=== PATIENT | female | born 1945 | race Caucasian/White ===

== ENCOUNTER → 2018-01-15 08:15 | Outpatient (CLI) | payer MEDICARE, SELFPAY ==
[2018-01-15 10:07] LABS: Add Manual Diff / Slide Review NO; Eosinophils Percent Auto 3.2 % (2-4); Hematocrit 41.9 % (36-46); Hemoglobin 14.2 g/dL (12.0-16.0); Lymphocytes Percent Auto 35.6 % (25-40); Mean Corpuscular HGB Conc 33.9 % (30-36); Mean Corpuscular Hemoglobin 31.7 PG (26-34); Mean Corpuscular Volume 93.4 fL (80-100); Monocytes Percent Auto 9.6 % (3-14); Neutrophils Absolute Auto 2600 /uL (3000-5900); Neutrophils Percent Auto 50.6 % (50-75); Platelet Count 278 X10^3/uL (150-400); Red Blood Cell Count 4.48 X10^6/uL (4.0-5.2); Red Cell Distribution Width 14.7 % (11.6-14.8); White Blood Cell Count 5.1 X10^3/uL (4.5-11.0)
[2018-01-15 10:46] LABS: Alanine Aminotransferase 28 IU/L (9-52); Albumin 4.4 g/dL (3.5-5.0); Albumin Globulin Ratio 1.5 (1.0-2.8); Alkaline Phosphatase 55 U/L (38-126); Aspartate Aminotransferase 41 IU/L (14-36); BUN Creatinine Ratio 18.9 (6-22); Bilirubin Total 0.8 mg/dL (0.2-1.3); Blood Urea Nitrogen 17 mg/dL (7-17); Calcium 9.5 mg/dL (8.4-10.2); Carbon Dioxide 32 mmol/L (22-32); Chloride 100 mmol/L (98-107); Cholesterol 215 mg/dL (140-199); Estimated Glomerular Filt Rate > 60.0 mL/min (>60); Globulin 2.9 g/dL (1.7-4.1); Glucose 89 mg/dL (80-110); HDL Cholesterol 70 mg/dL (40-60); HEMOLYSIS < 15 (0-50); LDL Cholesterol Calculated 120 mg/dL (<100); Potassium 4.7 mmol/L (3.4-5.1); Sodium 141 mmol/L (137-145); Total Protein 7.3 g/dL (6.3-8.2); Triglycerides 124 mg/dL (35-150)
[2018-01-15 11:10] LABS: TSH w/ Reflex to FT4 2.81 uIU/mL (0.47-4.68)
== END ==
PROVIDERS: PCP Family Medicine; Visit Provider Family Medicine
DX: E03.9 Hypothyroidism, unspecified (principal)
CPT/HCPCS: 36415; 80053; 80061; 84443; 85025

== ENCOUNTER → 2018-05-22 11:53 | Outpatient (CLI) | payer MEDICARE, SELFPAY ==
--- NOTE | 2018-05-22 | DI.MG.S_ITS ---
BILATERAL DIGITAL SCREENING MAMMOGRAM 3D/2D WITH CAD: 05/22/2018 CLINICAL: Routine screening. Family history of breast cancer. Comparison is made to exams dated: 02/18/2016 mammogram, 11/26/2012 mammogram, and 09/25/2011 mammogram - [facility]. The tissue of both breasts is heterogeneously dense. This may lower the sensitivity of mammography. Current study was also evaluated with a Computer Aided Detection (CAD) system. No significant masses, calcifications, or other findings are seen in either breast. There has been no significant interval change. IMPRESSION: NEGATIVE There is no mammographic evidence of malignancy. A 1 year screening mammogram is recommended. This exam was interpreted at Station ID: [id number]. NOTE: For mammograms, a report in lay terms will be sent to the patient. Approximately 15% of breast malignancies will not be visualized mammographically. In the management of a palpable breast mass, a negative mammogram must not discourage biopsy of a clinically suspicious lesion. Electronically Signed By: Ahsan sandoval/cristian:05/24/2018 10:56:24 letter sent: Normal Exam ACR BI-RADS Category 1: Negative 3341F
== END ==
PROVIDERS: Family Provider Family Medicine; PCP Family Medicine; Visit Provider Family Medicine
DX: Z12.31 Encounter for screening mammogram for malignant neoplasm of breast (principal); Z80.3 Family history of malignant neoplasm of breast
CPT/HCPCS: 77063; 77067

== ENCOUNTER 2018-07-06 07:00 | Day surgery (SDC) | payer MEDICARE, SELFPAY ==
[2018-07-06] MEDS: PROPARACAINE 0.5% OPHTH SOL 2 DROPS EYE-OP (07:31)
[2018-07-06 07:33] VITALS: BMI 20.6
[2018-07-06] MEDS: CATARACT EYE COMPOUND (10 DROPS/SYRINGE) 3 DROPS EYE-OP (07:37)
[2018-07-06 07:38] VITALS: BP 139/80; PULSE 53; RESP 15; TEMP 36.1; O2SAT 100; BMI 20.6
--- NOTE | 2018-07-06 08:11 | PM.PREOP ---
Pre-operative Note Interval Note History & Physical reviewed/Exam performed by Physician: No Changes to H&P: No
--- NOTE | 2018-07-06 08:11 | PM.OP.1 ---
Operative Date/Time/Diagnoses Pre-op diagnosis: Nuclear Cataract Left eye Post-op diagnosis: same Procedure & Clinicians Surgeon: Eduardo Velazco Anesthesia Type: MAC +/- and Sedation Operative Notes Procedure in detail: Patient brought to the operating suite. Tetracaine drops placed in the left eye. Marking instrument was used to harrison the vertical and horizontal meridian. Patient was prepped and draped in sterile manner. Wire lid speculum was placed in the eye. Marking instrument was used to harrison the 175 degree meridian. Betadine drops were placed on the eye. This was irrigated. Lidocaine jelly was placed on the eye. A paracentesis port was created with a side-port blade. 0.1 mL 1% preservative free lidocaine was injected into the anterior chamber. The anterior chamber was deepened with viscoelastic. 2.6 mm keratome was used to create a temporal clear corneal incision. Cystotome and Utrata forceps were used to create continuous tear capsulorrhexis. Balanced salt solution was used to hydro dissect the nucleus. The phacoemulsification handpiece was inserted and the nucleus was removed using the stop and chop technique. The irrigation aspiration handpiece was inserted and the remaining cortex was removed. Anterior chamber was deepened with viscoelastic. An Vasquez [id number] intraocular lens with a power of 24.0 was injected into the capsular bag. Irrigation aspiration handpiece was inserted and the remaining viscoelastic was removed. The lens was rotated to the 175 degree meridian. Incision was hydrated with balanced salt solution and found to be leak free with pressure with Weck-Eduarda sponges. 0.1 mL Vigamox injected anterior chamber. 0.3 mL Kenalog 10 mg was injected subconjunctivally. Lid speculum was removed. The patient left the operating room in excellent condition. Complications: none Condition: stable Disposition: same day surgery
[2018-07-06] MEDS: PHENYLEPHRINE/LIDOCAINE VIAL (OR) 0.2 ML EYE-OP (08:20)
[2018-07-06] MEDS: TRIAMCINOLONE 50 MG/5 ML VIAL INJ (08:21)
[2018-07-06] MEDS: TETRACAINE 0.5% OPHTH DROPS 4 ML 2 DROPS EYE-OP (08:21)
[2018-07-06] MEDS: MOXIFLOXACIN OPHTH DROPS 3 ML BOTTLE 2 DROPS INJ (08:21)
[2018-07-06] MEDS: CHONDROIDTIN/SOD HYALURONATE 1.05 ML SYRINGE INTRAOCULA (08:21)
[2018-07-06] MEDS: BALANCED SALT IRRIG SOLN NO.2 500 ML, EPINEPHrine 1 MG IRR (08:23)
[2018-07-06 08:40] VITALS: BP 127/87; PULSE 54; RESP 16; TEMP 36.5; O2SAT 99
== END 2018-07-06 09:30 ==
LOC: OR 07:05
PROVIDERS: Family Provider Family Medicine; PCP Family Medicine; Visit Provider Ophthalmology
DX: H25.12 Age-related nuclear cataract, left eye (principal)
CPT/HCPCS: J0171; J2250; J3010; J3301; V2787

== ENCOUNTER 2018-07-27 07:08 | Day surgery (SDC) | payer MEDICARE, SELFPAY ==
[2018-07-27] MEDS: PROPARACAINE 0.5% OPHTH SOL 2 DROPS EYE-OP (07:29)
[2018-07-27] MEDS: CATARACT EYE COMPOUND (10 DROPS/SYRINGE) 3 DROPS EYE-OP (07:31)
[2018-07-27 07:38] VITALS: BP 121/78; PULSE 61; RESP 15; TEMP 36.2; O2SAT 97; BMI 20.2
--- NOTE | 2018-07-27 08:08 | PM.PREOP ---
Pre-operative Note Interval Note History & Physical reviewed/Exam performed by Physician: No Changes to H&P: No
--- NOTE | 2018-07-27 08:08 | PM.OP.1 ---
Operative Date/Time/Diagnoses Pre-op diagnosis: Nuclear cataract right eye Procedure & Clinicians Procedure: Cataract Surgery Same procedure as scheduled: Yes Surgeon: Eduardo Velazco Anesthesia Type: MAC +/- and Sedation Operative Notes Procedure in detail: Patient brought to the operating suite. Tetracaine drops placed in the right eye. Marking instrument was used to harrison the vertical and horizontal meridians. Patient was prepped and draped in sterile manner. Wire lid speculum was placed in the eye. Marking instrument was used to harrison the 15 degree meridian. Betadine drops were placed on the eye. This was irrigated. Lidocaine jelly was placed on the eye. A paracentesis port was created with a side-port blade. 0.1 mL 1% preservative free lidocaine was injected into the anterior chamber. The anterior chamber was deepened with viscoelastic. 2.6 mm keratome was used to create a temporal clear corneal incision. Cystotome and Utrata forceps were used to create continuous tear capsulorrhexis. Balanced salt solution was used to hydro dissect the nucleus. The phacoemulsification handpiece was inserted and the nucleus was removed using the stop and chop technique. The irrigation aspiration handpiece was inserted and the remaining cortex was removed. Anterior chamber was deepened with viscoelastic. An Vasquez [id number] intraocular lens with a power of 23.0 was injected into the capsular bag. Irrigation aspiration handpiece was inserted and the remaining viscoelastic was removed. The lens was rotated to the 15 degree meridian. Incision was hydrated with balanced salt solution and found to be leak free with pressure with Weck-Eduarda sponges. 0.1 mL Vigamox injected anterior chamber. 0.3 mL Kenalog 10 mg was injected subconjunctivally. Lid speculum was removed. The patient left the operating room in excellent condition. Complications: none Condition: stable Disposition: same day surgery
[2018-07-27] MEDS: PHENYLEPHRINE/LIDOCAINE VIAL (OR) 0.2 ML EYE-OP (08:18)
[2018-07-27] MEDS: TRIAMCINOLONE 50 MG/5 ML VIAL INJ (08:19)
[2018-07-27] MEDS: MOXIFLOXACIN OPHTH DROPS 3 ML BOTTLE 2 DROPS INJ (08:19)
[2018-07-27] MEDS: CHONDROIDTIN/SOD HYALURONATE 1.05 ML SYRINGE INTRAOCULA (08:20)
[2018-07-27] MEDS: TETRACAINE 0.5% OPHTH DROPS 4 ML 2 DROPS EYE-OP (08:20)
[2018-07-27] MEDS: LIDOCAINE JELLY 2% 5 ML 1 APPLIC TOP (08:20)
[2018-07-27] MEDS: BALANCED SALT IRRIG SOLN NO.2 500 ML, EPINEPHrine 1 MG IRR (08:21)
[2018-07-27 08:40] VITALS: BP 117/78; PULSE 53; RESP 16; TEMP 36.4; O2SAT 100
== END 2018-07-27 08:52 | disposition home or self-care (01) ==
LOC: OR 07:10
PROVIDERS: Family Provider Family Medicine; PCP Family Medicine; Visit Provider Ophthalmology
DX: H25.11 Age-related nuclear cataract, right eye (principal)
CPT/HCPCS: J0171; J2250; J3301; V2787

== ENCOUNTER → 2019-05-27 13:30 | Outpatient (CLI) | payer MEDICARE, SELFPAY ==
--- NOTE | 2019-05-27 | DI.MG.S_ITS ---
BILATERAL DIGITAL SCREENING MAMMOGRAM 3D/2D WITH CAD: 05/27/2019 CLINICAL: Routine screening. Family history of breast cancer. Comparison is made to exams dated: 05/22/2018 mammogram, 02/18/2016 mammogram, and 11/26/2012 mammogram - [facility]. The tissue of both breasts is heterogeneously dense. This may lower the sensitivity of mammography. Current study was also evaluated with a Computer Aided Detection (CAD) system. No significant masses, calcifications, or other findings are seen in either breast. There has been no significant interval change. IMPRESSION: NEGATIVE There is no mammographic evidence of malignancy. A 1 year screening mammogram is recommended. This exam was interpreted at Station ID: [id number]. NOTE: For mammograms, a report in lay terms will be sent to the patient. Approximately 15% of breast malignancies will not be visualized mammographically. In the management of a palpable breast mass, a negative mammogram must not discourage biopsy of a clinically suspicious lesion. Electronically Signed By: Dallas funez/cristian:05/30/2019 19:30:00 letter sent: Normal Exam ACR BI-RADS Category 1: Negative 3341F
== END ==
PROVIDERS: PCP Family Medicine; Visit Provider Family Medicine
DX: Z12.31 Encounter for screening mammogram for malignant neoplasm of breast (principal); Z80.3 Family history of malignant neoplasm of breast
CPT/HCPCS: 77063; 77067

== ENCOUNTER → 2019-07-20 09:21 | Outpatient (CLI) | payer MEDICARE, SELFPAY ==
[2019-07-20 10:00] LABS: Add Manual Diff / Slide Review NO; Basophils Absolute Auto 100 /uL (0-100); Basophils Percent Auto 1.1 % (0-2); Eosinophils Absolute Auto 200 /uL (0-450); Hematocrit 41.4 % (36-46); Hemoglobin 13.8 g/dL (12.0-16.0); Lymphocytes Absolute Auto 1300 /uL (1100-4500); Lymphocytes Percent Auto 27.7 % (25-40); Mean Corpuscular HGB Conc 33.3 % (30-36); Mean Corpuscular Hemoglobin 31.6 PG (26-34); Mean Corpuscular Volume 94.8 fL (80-100); Monocytes Absolute Auto 600 /uL (0-900); Monocytes Percent Auto 11.7 % (3-14); Neutrophils Absolute Auto 2700 /uL (1500-7000); Neutrophils Percent Auto 55.5 % (50-75); Platelet Count 257 X10^3/uL (150-400); Red Blood Cell Count 4.36 X10^6/uL (4.0-5.2); Red Cell Distribution Width 14.3 % (11.6-14.8); White Blood Cell Count 4.9 X10^3/uL (4.5-11.0)
[2019-07-20 10:43] LABS: Alanine Aminotransferase 15 IU/L (<35); Albumin 4.3 g/dL (3.5-5.0); Albumin Globulin Ratio 1.4 (1.0-2.8); Alkaline Phosphatase 52 U/L (38-126); Aspartate Aminotransferase 32 IU/L (14-36); BUN Creatinine Ratio 25.6 (6-22); Bilirubin Total 0.6 mg/dL (0.2-1.3); Blood Urea Nitrogen 23 mg/dL (7-17); Calcium 9.6 mg/dL (8.4-10.2); Carbon Dioxide 29 mmol/L (22-32); Chloride 102 mmol/L (98-107); Cholesterol 205 mg/dL (140-199); Estimated Glomerular Filt Rate > 60.0 mL/min (>60); Glucose 92 mg/dL (80-110); HDL Cholesterol 70 mg/dL (40-60); HEMOLYSIS < 15 (0-50); LDL Cholesterol Calculated 106 mg/dL (<100); Potassium 4.7 mmol/L (3.4-5.1); Sodium 139 mmol/L (137-145); Total Protein 7.3 g/dL (6.3-8.2); Triglycerides 143 mg/dL (35-150)
[2019-07-20 11:14] LABS: Thyroid Stimulating Hormone 2.17 uIU/mL (0.47-4.68)
== END ==
PROVIDERS: PCP Family Medicine; Visit Provider Family Medicine
DX: E03.9 Hypothyroidism, unspecified (principal)
CPT/HCPCS: 36415; 80053; 80061; 84443; 85025

== ENCOUNTER → 2019-08-11 13:45 | Outpatient (CLI) | payer MEDICARE, SELFPAY | PROVIDERS: PCP Family Medicine; Referring Provider Family Medicine; Visit Provider Family Medicine | DX: Z78.0 Asymptomatic menopausal state (principal); E07.9 Disorder of thyroid, unspecified; R29.890 Loss of height | CPT/HCPCS: 77080 ==

== ENCOUNTER → 2020-01-21 10:54 | Outpatient (CLI) | payer MEDICARE, SELFPAY ==
[2020-01-23 20:58] LABS: COVID19 Sendout Not Detected (Not Detect)
== END ==
PROVIDERS: PCP Family Medicine; Visit Provider Physician Assistant
DX: Z11.59 Encounter for screening for other viral diseases (principal)
CPT/HCPCS: 87635

== ENCOUNTER 2020-01-24 13:37 | Day surgery (SDC) | payer MEDICARE, SELFPAY ==
[2020-01-24] VITALS (8 sets, daily range): BP systolic 107–125; BP diastolic 60–77; PULSE 54–63; RESP 13–18; TEMP 35.9–36.6; O2SAT 98–99
--- NOTE | 2020-01-24 14:16 | PM.HP.1 ---
History of Present Illness History of Present Illness Date Patient Seen: 01/24/20 Time Patient Seen: 14:16 Chief complaint: SDC Narrative: This is a 74-year-old woman with history of screening colonoscopy 10 years ago, she is here for follow-up colonoscopy. She denies any personal history of melena, hematochezia, unexplained weight loss, unexplained abdominal pain. She denies any family history of colon cancer colon polyps. She says she is otherwise quite healthy. ROS: Thirteen system review is otherwise negative other than as mentioned below and in HPI. PE: GENERAL: Well groomed and cooperative. Appears stated age. Answers questions promptly and appropriately. Vital signs noted. HENT: Normocephalic, atraumatic. Hearing intact. EYES: Conjunctiva pink, sclera white, no periorbital swelling. CARDIOVASCULAR: Regular rate. No pedal edema. RESPIRATORY: Non-tachypneic, breathing comfortably on room air. GASTROINTESTINAL: Abdomen soft and non-distended GENITALURINARY: No flank tenderness. MUSCULOSKELETAL: Equal tone and mass bilaterally. SKIN: Warm, dry, soft, appropriate color for ethnicity. No other lesions, rashes, or wounds. NEURO: Alert and Oriented X 3. No gross sensory deficits, or cognitive issues. PSYCH: Appropriate affect and mood. Patient History Medical History Chicken pox (Resolved ~1951) Claw toe (Resolved) Foot pain (Chronic 2011) Hayfever (Chronic ~1987) Herpes (Chronic 2000) Hypothyroidism (Chronic 1984) Lumbar spine pain (Chronic ~2004) Measles (Resolved ~1949) Mitral valve prolapse (Resolved) Mumps (Resolved ~1949) Osteoarthritis (Chronic 2002) Shoulder pain (Chronic 2011) Stress ulcer (Resolved 11/2009) Vitreous floaters of both eyes (Chronic 2010) Surgical History Anesthesia (Resolved) Cataract extraction status of left eye (Acute) History of toe surgery (Resolved 2012) History of tonsillectomy (Resolved 1948) Status post hernia repair (Resolved 1944) Status post hernia repair (Resolved 1946) Family & Social History Family History Brother Age: 70 Cancer Hodgkin's disease Lymphoma Alcoholism Mother Hypertension CVA (cerebral vascular accident) Breast cancer Congestive heart failure Sister Age: 66 Mental health problem Tongue cancer Mouth cancer Father Head trauma Grandfather No problems noted. Grandmother No problems noted. Grandfather Brain tumor Grandmother No problems noted. Social History: household members spouse Tobacco & Substance use: Smoking Status Never smoker alcohol intake current Meds Home Medications and Allergies Home Medications Medication Instructions Recorded Confirmed Type cholecalciferol (vitamin D3) 2,000 iu PO Q DAY #0 09/23/11 01/24/20 History [Vitamin D3] ascorbic acid (vitamin C) 500 mg PO QDAY #0 10/23/11 01/24/20 History L. acidophilus-L. rhamnosus 2 cap PO DAILY 07/27/18 01/24/20 History [Probiotic] levothyroxine 75 mcg tablet 75 mcg PO DAILY #90 tab 07/25/19 01/24/20 Rx Ca carb-Ca gluc-Mg ox-Mg gluco 500 tab PO DAILY 01/24/20 01/24/20 History [Calcium Magnesium] vitamin B complex 1 tab PO DAILY 01/24/20 01/24/20 History Allergies Allergy/AdvReac Type Severity Reaction Status Date / Time No Known Drug Allergies Allergy Verified 01/21/20 10:53 Assessment & Plan Assessment & Plan narrative: Risks and benefits of screening colonoscopy and possible polypectomy were discussed with the patient including risk of bleeding, perforation, need for additional procedures, risks of anesthesia. The patient desires to proceed with the colonoscopy procedure. COVID-19 COVID-19 status: Negative Result date/Date tested (Pos, Neg/Pending): 01/21/20 Time Spent With Patient Time with patient: 15-24 minutes Quality VTE Deep Vein Thrombosis/Pulmonary Embolism Present on Admission: No
--- NOTE | 2020-01-24 14:21 | P.OP.ENDO_ITS ---
Operative Date/Time/Diagnoses Date of procedure: 01/24/20 Time of procedure: 14:21 Pre-op diagnosis: Average risk for colon cancer, ten years since last colonoscopy Post-op diagnosis: other (Diverticulosis, very tortuous colon) Procedure & Clinicians Study performed: Colonoscopy Procedural sedation by the endoscopist Indications: Average risk for colon cancer, ten years since last colonoscopy Surgeon: Mackenzie Gottlieb Procedure Notes SCOAP/Timeout: Performed Procedure in detail: The patient was brought to the room and placed in left lateral decubitus position with all bony prominences padded. A time-out was performed and then the patient was given procedural sedation starting with 2 mg of Versed and [100] mcg of fentanyl. A total of 4 mg of Versed and 100 micro g of fentanyl were given for the entire procedure. Vitals were monitored thr oughout the procedure and remained stable. Once adequately sedated, the procedure was begun. A rectal exam was performed revealing [no abnormalities]. The colonoscope was then introduced to the rectum and advanced to the cecum in the usual fashion. The colon was very tortuous and required multiple maneuvers in order to reach the cecum safely. []The cecum was identified by the appendiceal orifice, the mucosal tri-fold, and the ileocecal valve. The scope was then retracted while rotating side to side and examining each mucosal fold. Extensive diverticulosis was seen throughout the descending and sigmoid colon, with evidence of scarring from prior episodes of diverticulitis, but no active diverticulitis at this time. No other lesions or abnormalities were seen. [] At the conclusion of the procedure retroflexion was performed and [small grade 1-2 internal hemorrhoids without stigmata of bleeding were seen]. The scope was then withdrawn from the rectum the procedure was concluded. The patient tolerated the procedure well and was transferred to the PACU in stable condition. Scope withdrawal time: 8 Sedation minutes: 36 Findings: diverticulosis Specimen(s): none sent Complications: none Impression: Diverticulosis Post-procedure Recommendations: Colonscopy in 10 years (Is healthy enough for colonoscopy at that time) Follow up: as needed Disposition: PACU
[2020-01-24] MEDS: SODIUM CHLORIDE 0.9% 1,000 ML 200 ML IV (14:23)
[2020-01-24] MEDS: MIDAZOLAM 5 MG/5 ML VIAL IV (14:59)
[2020-01-24] MEDS: fentaNYL 250 MCG/5 ML INJ IV (15:00)
--- NOTE | 2020-01-24 15:25 | SUR.PHASEI ---
Pt wanting to sleep. Refuses po fluids right now
== END 2020-01-24 16:10 | disposition home or self-care (01) ==
PROVIDERS: PCP Family Medicine; Referring Provider Surgery; Visit Provider Surgery
PROC: 0DJD8ZZ Inspection of Lower Intestinal Tract, Via Natural or Artificial Opening Endoscopic (ICD-10-PCS; CPT 45378; principal; 2020-01-24 14:30)
DX: Z12.11 Encounter for screening for malignant neoplasm of colon (principal); K57.30 Diverticulosis of large intestine without perforation or abscess without bleeding; K64.0 First degree hemorrhoids
CPT/HCPCS: G0121; 99152; 99153; J2250; J3010

== ENCOUNTER → 2021-03-29 10:05 | Outpatient (CLI) | payer MEDICARE, SELFPAY ==
[2021-03-29 10:49] LABS: Add Manual Diff / Slide Review NO; Basophils Absolute Auto 100 /uL (0-100); Basophils Percent Auto 1.3 % (0-2); Eosinophils Absolute Auto 100 /uL (0-450); Eosinophils Percent Auto 1.6 % (2-4); Hemoglobin 12.5 g/dL (12.0-16.0); Lymphocytes Absolute Auto 1200 /uL (1100-4500); Lymphocytes Percent Auto 25.1 % (25-40); Mean Corpuscular HGB Conc 32.8 % (30-36); Mean Corpuscular Hemoglobin 30.3 PG (26-34); Mean Corpuscular Volume 92.3 fL (80-100); Monocytes Absolute Auto 400 /uL (0-900); Monocytes Percent Auto 8.9 % (3-14); Neutrophils Absolute Auto 3000 /uL (1500-7000); Neutrophils Percent Auto 63.1 % (50-75); Platelet Count 285 X10^3/uL (150-400); Red Blood Cell Count 4.12 X10^6/uL (4.0-5.2); Red Cell Distribution Width 14.4 % (11.6-14.8); White Blood Cell Count 4.8 X10^3/uL (4.5-11.0)
[2021-03-29 11:14] LABS: Alanine Aminotransferase 15 IU/L (<35); Albumin 4.3 g/dL (3.5-5.0); Albumin Globulin Ratio 1.6 (1.0-2.8); Alkaline Phosphatase 58 U/L (38-126); Aspartate Aminotransferase 36 IU/L (14-36); BUN Creatinine Ratio 22.4 (6-22); Bilirubin Total 0.7 mg/dL (0.2-1.3); Blood Urea Nitrogen 19 mg/dL (7-17); Calcium 9.7 mg/dL (8.4-10.2); Carbon Dioxide 32 mmol/L (22-32); Chloride 102 mmol/L (98-107); Cholesterol 189 mg/dL (140-199); Estimated Glomerular Filt Rate > 60.0 mL/min (>60); Globulin 2.7 g/dL (1.7-4.1); Glucose 98 mg/dL (80-110); HDL Cholesterol 80 mg/dL (40-60); HEMOLYSIS < 15 (0-50); LDL Cholesterol Calculated 92 mg/dL (<100); Potassium 4.8 mmol/L (3.4-5.1); Sodium 137 mmol/L (137-145); Triglycerides 87 mg/dL (35-150)
[2021-03-29 11:45] LABS: Thyroid Stimulating Hormone 0.238 uIU/mL (0.47-4.68)
== END ==
PROVIDERS: PCP Family Medicine; Referring Provider Physician Assistant; Visit Provider Physician Assistant
DX: E03.9 Hypothyroidism, unspecified (principal); Z13.0 Encounter for screening for diseases of the blood and blood-forming organs and certain disorders involving the immune mechanism
CPT/HCPCS: 36415; 80053; 80061; 84443; 85025

== ENCOUNTER → 2021-04-12 15:27 | Outpatient (CLI) | payer MEDICARE, SELFPAY ==
--- NOTE | 2021-04-12 15:28 | DI.MG.S_ITS ---
BILATERAL DIGITAL SCREENING MAMMOGRAM 3D/2D WITH CAD: 04/12/2021 CLINICAL: Routine screening. Family history of breast cancer. Comparison is made to exams dated: 05/22/2018 mammogram, 05/27/2019 mammogram, and 02/18/2016 mammogram - [facility]. The tissue of both breasts is heterogeneously dense. This may lower the sensitivity of mammography. Current study was also evaluated with a Computer Aided Detection (CAD) system. There are benign calcifications in the right breast. No significant masses, calcifications, or other findings are seen in either breast. There has been no significant interval change. IMPRESSION: BENIGN There is no mammographic evidence of malignancy. A 1 year screening mammogram is recommended. This exam was interpreted at Station ID: [id number]. NOTE: For mammograms, a report in lay terms will be sent to the patient. Approximately 15% of breast malignancies will not be visualized mammographically. In the management of a palpable breast mass, a negative mammogram must not discourage biopsy of a clinically suspicious lesion. Electronically Signed By: Fatmata bernal/cristian:04/15/2021 07:32:05 letter sent: Normal Exam ACR BI-RADS Category 2: Benign Finding(s) 3342F
== END ==
PROVIDERS: PCP Family Medicine; Referring Provider Family Medicine; Visit Provider Family Medicine
DX: Z12.31 Encounter for screening mammogram for malignant neoplasm of breast (principal); Z80.3 Family history of malignant neoplasm of breast
CPT/HCPCS: 77063; 77067

== ENCOUNTER → 2021-05-22 08:56 | Outpatient (CLI) | payer MEDICARE, SELFPAY ==
[2021-05-22 12:35] LABS: TSH w/ Reflex to FT4 9.62 uIU/mL (0.47-4.68)
[2021-05-22 13:00] LABS: Free T4, Direct Thyroxine 0.73 ng/dL (0.78-2.19)
== END ==
PROVIDERS: PCP Family Medicine; Referring Provider Physician Assistant; Visit Provider Physician Assistant
DX: E03.9 Hypothyroidism, unspecified (principal)
CPT/HCPCS: 36415; 84439; 84443

== ENCOUNTER → 2021-07-05 14:13 | Outpatient (CLI) | payer MEDICARE, SELFPAY ==
[2021-07-05 16:08] LABS: TSH w/ Reflex to FT4 2.19 uIU/mL (0.47-4.68)
== END ==
PROVIDERS: PCP Family Medicine; Referring Provider Physician Assistant; Visit Provider Physician Assistant
DX: E03.9 Hypothyroidism, unspecified (principal)
CPT/HCPCS: 36415; 84443

== ENCOUNTER → 2022-01-28 09:44 | Outpatient (CLI) | payer MEDICARE, SELFPAY ==
--- NOTE | 2022-01-28 09:46 | DI.RAD.S_ITS ---
PROCEDURE: XR HIP W PEL IF DONE YENY MIN 4V INDICATIONS: Soreness/pain in left piriformis area TECHNIQUE: AP pelvis with lateral view(s) of the right hip(s). COMPARISON: None. FINDINGS: Bones: No fractures or dislocations. Pelvic ring appears intact. 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 No suspicious bony lesions. Soft tissues: The visualized bowel gas pattern is normal. No suspicious soft tissue calcifications. IMPRESSION: 1. No acute osseous abnormalities. 2. 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 If clinical symptoms persist or clinical suspicion for internal derangement is high, MRI is suggested for further evaluation. Dictated by: Deisi Xie M.D. on 01/28/2022 at 21:55 Approved by: Deisi Xie M.D. on 01/28/2022 at 21:57
== END ==
PROVIDERS: PCP Family Medicine; Referring Provider Physician Assistant; Visit Provider Physician Assistant
DX: M16.0 Bilateral primary osteoarthritis of hip (principal); M46.1 Sacroiliitis, not elsewhere classified; M79.18 Myalgia, other site; Z87.39 Personal history of other diseases of the musculoskeletal system and connective tissue
CPT/HCPCS: 73522

== ENCOUNTER → 2022-03-28 09:11 | Outpatient (CLI) | payer MEDICARE, SELFPAY ==
[2022-03-28 11:25] LABS: Add Manual Diff / Slide Review NO; Basophils Absolute Auto 100 /uL (0-100); Basophils Percent Auto 1.2 % (0-2); Eosinophils Absolute Auto 100 /uL (0-450); Eosinophils Percent Auto 2.4 % (2-4); Hematocrit 37.1 % (36-46); Hemoglobin 12.4 g/dL (12.0-16.0); Lymphocytes Absolute Auto 1200 /uL (1100-4500); Lymphocytes Percent Auto 24.6 % (25-40); Mean Corpuscular HGB Conc 33.6 % (30-36); Mean Corpuscular Hemoglobin 31.5 PG (26-34); Mean Corpuscular Volume 93.7 fL (80-100); Monocytes Absolute Auto 500 /uL (0-900); Monocytes Percent Auto 9.9 % (3-14); Neutrophils Absolute Auto 3000 /uL (1500-7000); Neutrophils Percent Auto 61.9 % (50-75); Platelet Count 251 X10^3/uL (150-400); Red Blood Cell Count 3.96 X10^6/uL (4.0-5.2); Red Cell Distribution Width 13.9 % (11.6-14.8); White Blood Cell Count 4.8 X10^3/uL (4.5-11.0)
[2022-03-28 12:26] LABS: Alanine Aminotransferase 15 IU/L (<35); Albumin Globulin Ratio 1.4 (1.0-2.8); Alkaline Phosphatase 48 U/L (38-126); Aspartate Aminotransferase 32 IU/L (14-36); BUN Creatinine Ratio 21.3 (6-22); Bilirubin Total 0.4 mg/dL (0.2-1.3); Blood Urea Nitrogen 20 mg/dL (7-17); Calcium 9.4 mg/dL (8.4-10.2); Carbon Dioxide 29 mmol/L (22-32); Chloride 101 mmol/L (98-107); Cholesterol 215 mg/dL (140-199); Estimated Glomerular Filt Rate > 60 mL/min (>60); Globulin 2.9 g/dL (1.7-4.1); Glucose 96 mg/dL (80-110); HDL Cholesterol 71 mg/dL (40-60); HEMOLYSIS < 15 (0-50); LDL Cholesterol Calculated 120 mg/dL (<100); Potassium 4.9 mmol/L (3.4-5.1); Sodium 137 mmol/L (137-145); Total Protein 6.9 g/dL (6.3-8.2); Triglycerides 122 mg/dL (35-150)
[2022-03-28 12:46] LABS: TSH w/ Reflex to FT4 9.45 uIU/mL (0.47-4.68)
[2022-03-28 13:22] LABS: Free T4, Direct Thyroxine 0.94 ng/dL (0.78-2.19)
== END ==
PROVIDERS: PCP Family Medicine; Referring Provider Family Medicine; Visit Provider Family Medicine
DX: E03.9 Hypothyroidism, unspecified (principal)
CPT/HCPCS: 36415; 80053; 80061; 84439; 84443; 85025

== ENCOUNTER → 2022-04-16 14:59 | Outpatient (CLI) | payer MEDICARE, SELFPAY ==
--- NOTE | 2022-04-16 15:01 | DI.MG.S_ITS ---
BILATERAL DIGITAL SCREENING MAMMOGRAM 3D/2D WITH CAD: 04/16/2022 CLINICAL: Routine screening. Family history of breast cancer. Comparison is made to exams dated: 04/12/2021 mammogram, 05/27/2019 mammogram, and 05/22/2018 mammogram - [facility]. Both breasts are heterogeneously dense, which may obscure small masses (category c / 51-75% glandular tissue). Current study was also evaluated with a Computer Aided Detection (CAD) system. No significant masses, calcifications, or other findings are seen in either breast. There has been no significant interval change. IMPRESSION: NEGATIVE There is no mammographic evidence of malignancy. A 1 year screening mammogram is recommended. Based on the Tyrer Cuzick model (a risk assessment model) the patient's lifetime risk is 10.5% and her 10 year risk is 0.0%. According to the ACR, ACS, and NCCN guidelines, an annual breast MRI exam along with mammogram is recommended if the patient's lifetime risk is 20% or greater. This exam was interpreted at Station ID: [id number]. NOTE: For mammograms, a report in lay terms will be sent to the patient. Approximately 15% of breast malignancies will not be visualized mammographically. In the management of a palpable breast mass, a negative mammogram must not discourage biopsy of a clinically suspicious lesion. Electronically Signed By: Lacho brown/cristian:04/17/2022 11:10:02 letter sent: Normal Exam ACR BI-RADS Category 1: Negative 3341F
== END ==
PROVIDERS: PCP Family Medicine; Referring Provider Family Medicine; Visit Provider Family Medicine
DX: Z12.31 Encounter for screening mammogram for malignant neoplasm of breast (principal); Z80.3 Family history of malignant neoplasm of breast
CPT/HCPCS: 77063; 77067

== ENCOUNTER → 2023-03-02 15:50 | Outpatient (CLI) | payer MEDICARE, SELFPAY ==
--- NOTE | 2023-03-02 | DI.RAD.S_ITS ---
PROCEDURE: XR FOOT RT MIN 3V INDICATIONS: FOOT PAIN TECHNIQUE: 3 views of the foot were acquired. COMPARISON: [facility], CR, XR FOOT 3 VIEWS WEIGHT BEARING RIGHT, 01/23/2023, 11:08. FINDINGS: Bones: Fracture of the 3rd metatarsal bone with surrounding callus formation. No suspicious bony lesions. Soft tissues: No tibiotalar joint effusion. Achilles tendon appears normal. IMPRESSION: Healing subacute 3rd metatarsal fracture. Dictated by: Lokesh Martin M.D. on 03/02/2023 at 16:51 Approved by: Lokesh Martin M.D. on 03/02/2023 at 16:52
== END ==
PROVIDERS: PCP Family Medicine; Referring Provider Podiatrist; Visit Provider Podiatrist
DX: M84.374D Stress fracture, right foot, subsequent encounter for fracture with routine healing (principal)
CPT/HCPCS: 73630

== ENCOUNTER → 2023-05-22 11:58 | Outpatient (CLI) | payer MEDICARE, SELFPAY ==
--- NOTE | 2023-05-22 | DI.MG.S_ITS ---
BILATERAL DIGITAL SCREENING MAMMOGRAM 3D/2D WITH CAD: 05/22/2023 CLINICAL: Routine screening. Family history of breast cancer. Comparison is made to exams dated: 04/16/2022 mammogram, 04/12/2021 mammogram, and 05/27/2019 mammogram - [facility]. Both breasts are heterogeneously dense, which may obscure small masses (category c / 51-75% glandular tissue). Current study was also evaluated with a Computer Aided Detection (CAD) system. No significant masses, calcifications, or other findings are seen in either breast. IMPRESSION: NEGATIVE There is no mammographic evidence of malignancy. A 1 year screening mammogram is recommended. Based on the Tyrer Cuzick model (a risk assessment model) the patient's lifetime risk is 9.4% and her 10 year risk is 0.0%. According to the ACR, ACS, and NCCN guidelines, an annual breast MRI exam along with mammogram is recommended if the patient's lifetime risk is 20% or greater. This exam was interpreted at Station ID: [id number]. NOTE: For mammograms, a report in lay terms will be sent to the patient. Approximately 15% of breast malignancies will not be visualized mammographically. In the management of a palpable breast mass, a negative mammogram must not discourage biopsy of a clinically suspicious lesion. Electronically Signed By: Suzy Dyer M.D., PH.D eb/cristian:05/23/2023 10:30:27 letter sent: Normal Exam ACR BI-RADS Category 1: Negative 3341F
== END ==
PROVIDERS: PCP Family Medicine; Referring Provider Family Medicine; Visit Provider Family Medicine
DX: Z12.31 Encounter for screening mammogram for malignant neoplasm of breast (principal); Z80.3 Family history of malignant neoplasm of breast
CPT/HCPCS: 77063; 77067

== ENCOUNTER → 2023-09-28 09:43 | Outpatient (CLI) | payer MEDICARE, SELFPAY ==
[2023-09-28 10:57] LABS: Add Manual Diff / Slide Review NO; Basophils Absolute Auto 100 /uL (0-100); Basophils Percent Auto 0.9 % (0-2); Eosinophils Absolute Auto 100 /uL (0-450); Eosinophils Percent Auto 1.8 % (2-4); Hematocrit 32.8 % (36-46); Hemoglobin 10.7 g/dL (12.0-16.0); Lymphocytes Absolute Auto 1300 /uL (1100-4500); Lymphocytes Percent Auto 18.6 % (25-40); Mean Corpuscular HGB Conc 32.7 % (30-36); Mean Corpuscular Hemoglobin 29.4 PG (26-34); Monocytes Absolute Auto 600 /uL (0-900); Monocytes Percent Auto 8.5 % (3-14); Neutrophils Absolute Auto 4800 /uL (1500-7000); Neutrophils Percent Auto 70.2 % (50-75); Platelet Count 304 X10^3/uL (150-400); Red Blood Cell Count 3.65 X10^6/uL (4.0-5.2); White Blood Cell Count 6.8 X10^3/uL (4.5-11.0)
[2023-09-28 11:13] LABS: Alanine Aminotransferase 15 IU/L (<35); Albumin 4.1 g/dL (3.5-5.0); Albumin Globulin Ratio 1.5 (1.0-2.8); Alkaline Phosphatase 50 U/L (38-126); Aspartate Aminotransferase 35 IU/L (14-36); BUN Creatinine Ratio 20.4 (6-22); Bilirubin Total 0.5 mg/dL (0.2-1.3); Blood Urea Nitrogen 19 mg/dL (7-17); Calcium 9.5 mg/dL (8.4-10.2); Carbon Dioxide 28 mmol/L (22-32); Chloride 105 mmol/L (98-107); Cholesterol 211 mg/dL (140-199); Estimated Glomerular Filt Rate > 60 mL/min (>60); Globulin 2.8 g/dL (1.7-4.1); Glucose 87 mg/dL (80-110); HDL Cholesterol 71 mg/dL (40-60); HEMOLYSIS < 15 (0-50); LDL Cholesterol Calculated 117 mg/dL (<100); Sodium 137 mmol/L (137-145); Total Protein 6.9 g/dL (6.3-8.2); Triglycerides 113 mg/dL (35-150)
[2023-10-02 03:52] LABS: Free T4, Direct Thyroxine 1.01 ng/dL (0.78-2.19)
== END ==
PROVIDERS: PCP Family Medicine; Referring Provider Family Medicine; Visit Provider Family Medicine
DX: E03.9 Hypothyroidism, unspecified (principal); Z79.899 Other long term (current) drug therapy
CPT/HCPCS: 36415; 80053; 80061; 84439; 84443; 85025

== ENCOUNTER → 2023-10-01 16:05 | Outpatient (CLI) | payer MEDICARE, SELFPAY ==
--- NOTE | 2023-10-01 16:07 | DI.RAD.S_ITS ---
PROCEDURE: XR HIP W PEL IF DONE RT 2V INDICATIONS: hip and back pain TECHNIQUE: AP pelvis with lateral view(s) of the right hip(s). COMPARISON: [facility], CR, XR HIP W PEL IF DONE YENY 3TO4V, 01/28/2022, 9:58. FINDINGS: Bones: No fractures or dislocations. Pelvic ring appears intact. No suspicious bony lesions. Stable appearance of mild-moderate osteoarthritic changes of the right hip. There also degenerative changes of the sacroiliac joints. Soft tissues: The visualized bowel gas pattern is normal. No suspicious soft tissue calcifications. IMPRESSION: No acute osseous abnormalities. Stable appearance of mild-moderate right hip osteoarthritic changes. Dictated by: Dallas Browning M.D. on 10/02/2023 at 8:59 Approved by: Dallas Browning M.D. on 10/02/2023 at 9:00
--- NOTE | 2023-10-01 16:07 | DI.RAD.S_ITS ---
PROCEDURE: XR LUMBAR SPINE 2-3V INDICATIONS: hip and back pain TECHNIQUE: 3 views of the lumbar spine were acquired. COMPARISON: None. FINDINGS: Bones: 5 jxh-oqt-dmwbqql vertebrae are present. There is dextrocurvature of the lumbar spine. No acute vertebral body compression fractures. No suspicious bony lesions. Moderate multilevel lumbar spondylosis most pronounced at the thoracolumbar junction, L1-2, and L5-S1. Minimal anterolisthesis of L4 on L5. Multilevel disc space loss and degenerative endplate changes. Moderate mid and lower lumbar facet arthropathy. Soft tissues: Overlying bowel gas pattern is normal. No suspicious soft tissue calcifications. IMPRESSION: No acute osseous abnormalities. Dextrocurvature of the lumbar spine with moderate multilevel lumbar spondylosis as described above. Dictated by: Dallas Browning M.D. on 10/02/2023 at 9:00 Approved by: Dallas Browning M.D. on 10/02/2023 at 9:04
== END ==
PROVIDERS: PCP Family Medicine; Referring Provider Family Medicine; Visit Provider Family Medicine
DX: M47.814 Spondylosis without myelopathy or radiculopathy, thoracic region (principal); M47.816 Spondylosis without myelopathy or radiculopathy, lumbar region; M47.817 Spondylosis without myelopathy or radiculopathy, lumbosacral region; M25.559 Pain in unspecified hip; G89.29 Other chronic pain
CPT/HCPCS: 72100; 73502

== ENCOUNTER → 2024-02-08 10:06 | Outpatient (CLI) | payer MEDICARE, SELFPAY ==
[2024-02-08 11:21] LABS: Add Manual Diff / Slide Review NO; Basophils Absolute Auto 100 /uL (0-100); Basophils Percent Auto 1.1 % (0-2); Eosinophils Absolute Auto 100 /uL (0-450); Eosinophils Percent Auto 1.8 % (2-4); Hematocrit 41.7 % (36-46); Lymphocytes Absolute Auto 1300 /uL (1100-4500); Lymphocytes Percent Auto 20.1 % (25-40); Mean Corpuscular HGB Conc 33.5 % (30-36); Mean Corpuscular Volume 92.4 fL (80-100); Monocytes Absolute Auto 400 /uL (0-900); Monocytes Percent Auto 6.7 % (3-14); Neutrophils Absolute Auto 4400 /uL (1500-7000); Neutrophils Percent Auto 70.3 % (50-75); Platelet Count 263 X10^3/uL (150-400); Red Blood Cell Count 4.51 X10^6/uL (4.0-5.2); Red Cell Distribution Width 15.4 % (11.6-14.8); White Blood Cell Count 6.2 X10^3/uL (4.5-11.0)
[2024-02-08 11:39] LABS: HEMOLYSIS < 15 (0-50); Iron 129 ug/dL (37-170)
[2024-02-08 11:51] LABS: Percent Iron Saturation 37 % (15-50); Total Iron Binding Capacity 346 ug/dL (265-497); Transferrin 282 mg/dL (206-381)
[2024-02-08 12:18] LABS: Ferritin 16 ng/mL (11-264)
== END ==
PROVIDERS: PCP Family Medicine; Referring Provider Family Medicine; Visit Provider Family Medicine
DX: D64.9 Anemia, unspecified (principal)
CPT/HCPCS: 36415; 82728; 83540; 83550; 85025

== ENCOUNTER → 2024-03-03 12:41 | Outpatient (CLI) | payer MEDICARE, SELFPAY ==
[2024-03-03 18:14] LABS: TSH w/ Reflex to FT4 3.55 uIU/mL (0.47-4.68)
== END ==
PROVIDERS: PCP Family Medicine; Referring Provider Family Medicine; Visit Provider Family Medicine
DX: E03.9 Hypothyroidism, unspecified (principal)
CPT/HCPCS: 36415; 84443

== ENCOUNTER → 2024-09-17 | Outpatient (CLI) | payer MEDICARE, SELFPAY ==
--- NOTE | 2024-09-17 11:29 | DI.MG.S_ITS ---
MM screening mammo BI: 09/17/2024. BI-RADS: 1 CLINICAL: 79-year old female for bilateral screening mammogram. Tyrer-Cuzick lifetime risk of 4.7%. Current reported family history of breast cancer: mother. PRIOR EXAMS 05/22/2023, 04/16/2022, 04/12/2021, 05/27/2019, 05/22/2018, 02/18/2016. MAMMOGRAPHY TECHNIQUE: 2D and 3D (tomosynthesis) digital mammographic views obtained, with additional images as needed for full coverage. Current study was also evaluated with a Computer Aided Detection (CAD) system. DENSITY C. The breasts are heterogeneously dense, which may obscure small masses. MAMMOGRAPHY FINDINGS Bilateral: No suspicious mass, asymmetry, microcalcification, or other abnormality seen. No significant change from comparison. IMPRESSION: * No evidence of malignancy. RECOMMENDATIONS Bilateral * Annual screening mammography. OVERALL ASSESSMENT CATEGORY BI-RADS-1: Negative. The [employer] recommends annual screening mammography beginning at age 40 for women with average risk of breast cancer. ELECTRONICALLY SIGNED: Key Guerrero M.D. on 09/19/2024 at 11:53:20 AM PT Interpreting Station ID: [id number]
== END ==
PROVIDERS: PCP Family Medicine; Referring Provider Family Medicine; Visit Provider Family Medicine
DX: Z12.31 Encounter for screening mammogram for malignant neoplasm of breast (principal); Z80.3 Family history of malignant neoplasm of breast; R92.333 Mammographic heterogeneous density, bilateral breasts
CPT/HCPCS: 77063; 77067

== ENCOUNTER → 2024-11-23 15:55 | Outpatient (CLI) | payer MEDICARE, SELFPAY | PROVIDERS: PCP Family Medicine; Visit Provider Nurse Practitioner Family | DX: J02.9 Acute pharyngitis, unspecified (principal) | CPT/HCPCS: 87070 ==

== ENCOUNTER → 2025-01-26 12:47 | Outpatient (CLI) | payer MEDICARE, SELFPAY ==
--- NOTE | 2025-01-26 12:49 | DI.RAD.S_ITS ---
PROCEDURE: XR FOOT RT MIN 3V INDICATIONS: r/o stress Fx. Hx 4th met Fx TECHNIQUE: 3 views of the foot were acquired. COMPARISON: [facility], CR, XR FOOT RT MIN 3V, 03/02/2023, 16:17. FINDINGS: Bones: No acute fracture or dislocation. No evidence for abnormal periosteal reaction. Healed fracture deformity of the 3rd metatarsal. Polyarticular background degenerative changes of the right foot most pronounced in the right 1st metatarsophalangeal joint. Moderate right midfoot osteoarthritic changes. No suspicious osseous lesions. Soft tissues: No tibiotalar joint effusion. Achilles tendon appears normal. IMPRESSION: Right foot without acute fracture or dislocation. No radiographic evidence to suggest stress fracture. If there is persistent clinical concern, further evaluation with nuclear medicine bone scan or MRI can be considered. Dictated by: Dallas Browning M.D. on 01/27/2025 at 7:21 Approved by: Dallas Browning M.D. on 01/27/2025 at 7:23
== END ==
PROVIDERS: PCP Family Medicine; Referring Provider Family Medicine; Visit Provider Chiropractor
DX: M79.671 Pain in right foot (principal); Z87.81 Personal history of (healed) traumatic fracture
CPT/HCPCS: 73630